=== PATIENT | male | born 1965 | race Caucasian/White ===

== ENCOUNTER 2021-05-20 07:30 | Outpatient (CLI) | payer OTHER | END 2021-05-20 07:31 | disposition home or self-care (01) | LOC: NUCLEAR 07:30 | PROVIDERS: ATTEND Preventive Medicine Occupational Medicine | DX: I20.9 Angina pectoris, unspecified (principal) ==

== ENCOUNTER 2021-05-27 07:10 | Outpatient (CLI) | payer OTHER | END 2021-05-27 08:25 | disposition home or self-care (01) | LOC: NUCLEAR 07:10 | PROVIDERS: ATTEND Internal Medicine | DX: R07.89 Other chest pain (principal) | CPT/HCPCS: 78452; 93017; A9500 ==